=== PATIENT | female | born 1945 | race Caucasian/White ===

== ENCOUNTER 2022-09-05 12:24 | Emergency (ER) | payer MEDICARE, SELFPAY ==
[2022-09-05 12:48] VITALS: BP 146/52; PULSE 67; RESP 18; TEMP 36.9; O2SAT 98
--- NOTE | 2022-09-05 14:01 | ED.GENADUL_ITS ---
Discharge Plan Disposition Patient Disposition: Home Discharge Details Clinical Impression: Finger laceration Primary Care Provider: Holli,Local ED Provider: Charley Pickard Discharge Instructions Instructions: Finger Laceration (ED) Additional Instructions: Stable suture removal in 10 days Keep clean and dry, do not submerge in water Return with spreading redness, fever, worsening pain Discharge Data Discharge Date/Time-TO BE ENTERED AT DEPARTURE: 09/05/22 14:13 Medical Decision Making Right third digit with laceration at middle phalanx, tetanus up-to-date Neurovascularly intact, range of motion intact We discussed sutures versus glue and patient prefers suture placement at this time 1 horizontal mattress stitch was applied Dressing Suture removal in 10 days recommended Return precautions reviewed and patient expressed understanding HPI General Date/Time Provider Initiated Documentation: 09/05/22 13:25 . HPI Narrative: This 77-year-old female presents with report of laceration to her right middle finger just prior to arrival. Tetanus up-to-date. Denies any difficulties with flexion and extension. General Stated Complaint: Laceration JOSE: 4 PFSH All Active Problems (Updated 09/05/22 @ 14:04 by YENIFER Feliz) Finger laceration (Acute) Social History Smoking/Tobacco Use Status: Never Smoking risk assessment performed?: Yes Drug use: Never Substance use type: does not use Do you feel safe at home: Yes Do you feel safe in your relationship?: Yes Course Vital Signs Vital signs: Vital Signs Temperature 36.9 C 09/05/22 12:48 Pulse 67 09/05/22 12:48 Respiratory Rate 18 09/05/22 12:48 Blood Pressure 146/52 H 09/05/22 12:48 Pulse Oximetry 98 09/05/22 12:48 Temperature 36.9 C 09/05/22 12:48 Temperature Source Temporal Artery Scan 09/05/22 12:48 Pulse 67 09/05/22 12:48 Respiratory Rate 18 09/05/22 12:48 Respiratory Effort Normal, Non-Labored 09/05/22 13:42 Blood Pressure 146/52 H 09/05/22 12:48 Blood Pressure Position Sitting 09/05/22 12:48 Pulse Oximetry 98 09/05/22 12:48 Oxygen Delivery Method Room Air 09/05/22 12:48 Oxygen Flow Rate 0 09/05/22 12:48 Procedures Laceration Laceration 1: Site: hand Size (cm): 1 Description: linear Local Anesthetic: Lidocaine 1% Amount of anesthesia used (mL): 2 Skin layer closed with: nylon Size (cm): 5-0 Number of sutures: 1 Technique: horizontal mattress
== END 2022-09-05 14:13 | disposition home or self-care (01) ==
PROVIDERS: Emergency Provider Physician Assistant
DX: S61.212A Laceration without foreign body of right middle finger without damage to nail, initial encounter (principal); W25.XXXA Contact with sharp glass, initial encounter
CPT/HCPCS: 12001